=== PATIENT | female | born 1985 | race Caucasian/White ===

== ENCOUNTER 2017-05-14 05:53 | Day surgery (SDC) | payer MEDICARE, MEDICAID ==
[~2017-05-14] VITALS: Ht 149.9 cm; Wt 52.2 kg
[~2017-05-14 05:53] MED LIST: CLARITIN; DEPO-PROVER150 MG/M1 IM; DIMETAPP 2 MG/120 ML PO; TYLENOL 325MG325 MG PO
[2017-05-14] MEDS ORDERED: FLONASE NASAL S16 GM NS (06:49)
[2017-05-14] MEDS ORDERED: MIRALAX PA17 GM/Dose PO (06:50)
[2017-05-14] MEDS ORDERED: COLACE 100100 MG/CAP PO (06:51)
[2017-05-14] MEDS ORDERED: ZYRTEC 10MG10 MG PO (06:52)
[2017-05-14 07:21] VITALS: BP 161/105; PULSE 116; TEMP 99.2
[2017-05-14 10:45] VITALS: BP 155/104; PULSE 97; TEMP 98
[2017-05-14 11:00] VITALS: BP 148/73; PULSE 90
[2017-05-14 16:17] VITALS: BP 140/98; PULSE 93
[2017-05-14 16:18] VITALS: TEMP 97.7
== END 2017-05-14 11:45 ==
LOC: SDCO 05:53
DX: Z01.419 Encounter for gynecological examination (general) (routine) without abnormal findings (principal); Z01.20 Encounter for dental examination and cleaning without abnormal findings; K08.89 Other specified disorders of teeth and supporting structures; Q04.0 Congenital malformations of corpus callosum; F72 Severe intellectual disabilities
CPT/HCPCS: 57410; D4355; J0690; J2405; J2704; J3010

== ENCOUNTER 2022-02-11 09:33 | Emergency (ER) | payer MEDICARE, MEDICAID ==
[~2022-02-11 09:33] MED LIST changes: +COLACE 100100 MG/CAP PO; +FLONASE NASAL S16 GM NS; +MIRALAX PA17 GM/Dose PO; +ZYRTEC 10MG10 MG PO
[2022-02-11 10:13] VITALS: BP 121/79; PULSE 103; TEMP 97.7
== END 2022-02-11 12:45 | disposition home or self-care (01) ==
LOC: COL.ER 09:33
DX: S01.01XA Laceration without foreign body of scalp, initial encounter (principal); Z23 Encounter for immunization; W01.198A Fall on same level from slipping, tripping and stumbling with subsequent striking against other object, initial encounter; Y92.828 Other wilderness area as the place of occurrence of the external cause
CPT/HCPCS: J2250

== ENCOUNTER 2022-08-21 05:43 | Day surgery (SDC) | payer MEDICARE, MEDICAID ==
[~2022-08-21] VITALS: Ht 142.2 cm; Wt 56.5 kg
[2022-08-21 06:25] VITALS: BP 162/95; PULSE 67; TEMP 98.2
--- NOTE | 2022-08-21 06:49 | NUR ---
Fretted Instrument Repairer, RN, reached out to Dr. Hadley at [phone] and LMOM; relayed intent of call and call back number; requesting PRN medication due to pts developmental delay and anxiety.
--- NOTE | 2022-08-21 08:51 | NUR ---
Per scheduling staff, Dr. Hadley has a family emergency and has to cancel the pts case. Roustabout Pusher, RN, notified [facility] dressage judge with pt, Fadia, and requested for the facility to reach back out to Dr. Hadley's office to reschedule; Dr. Hadley will reach out to the pts family later today and discuss. Assisted dressage judge with dressing pt, escorted out to [facility] at 0845.
== END 2022-08-21 08:45 | disposition home or self-care (01) ==
LOC: SDCO 05:43
DX: K05.10 Chronic gingivitis, plaque induced (principal); Z53.9 Procedure and treatment not carried out, unspecified reason; Q04.0 Congenital malformations of corpus callosum; F79 Unspecified intellectual disabilities; N39.3 Stress incontinence (female) (male); R73.01 Impaired fasting glucose; E78.5 Hyperlipidemia, unspecified; K59.00 Constipation, unspecified; L21.9 Seborrheic dermatitis, unspecified; J30.2 Other seasonal allergic rhinitis; Z79.899 Other long term (current) drug therapy; Z79.51 Long term (current) use of inhaled steroids
CPT/HCPCS: J2250; J2704; J7120